=== PATIENT | female | born 1985 | race American Indian/Alaskan Native ===

== ENCOUNTER 2019-05-05 09:39 | Observation (INO) | payer OTHER ==
--- NOTE | 2019-05-05 11:50 | Emergency Department Report ---
ED General Adult HPI - General Chief complaint: Sore Throat Stated complaint: CHEST PAIN/THROAT/HEAD PAIN Time Seen by Provider: 05/05/19 10:24 Source: patient Mode of arrival: Ambulatory Limitations: No Limitations - History of Present Illness Initial comments: Patient is a 33-year-old female presents emergency room with complaints of URI symptoms that began yesterday. She has associated cough, congestion, shortness of breath, chest discomfort with coughing, sore throat, ear pressure. pt states she has had N/V. She denies any rhinorrhea or fever. She states that she only tried to take Motrin [id number]. She denies any past medical history or allergies medications. She states that she has a smoker. Patient states that she is a daily drinker 1 pint of liquor a day. - Related Data Allergies Allergy/AdvReac Type Severity Reaction Status Date / Time No Known Allergies Allergy Unverified 05/05/19 09:43 ED Review of Systems ROS: Stated complaint: CHEST PAIN/THROAT/HEAD PAIN Other details as noted in HPI Comment: All other systems reviewed and negative ED Past Medical Hx - Past Medical History Previous Medical History?: No - Surgical History Past Surgical History?: No - Social History Smoking Status: Current Every Day Smoker Substance Use Type: Alcohol ED Physical Exam - General Limitations: No Limitations General appearance: alert, in no apparent distress - Head Head exam: Present: atraumatic, normocephalic - Eye Eye exam: Present: normal appearance - ENT ENT exam: Present: normal orophraynx, mucous membranes moist, TM's normal bila terally, normal external ear exam, other (clear nasal discharge, pale boggy turbinates) - Respiratory Respiratory exam: Present: normal lung sounds bilaterally. Absent: respiratory distress, wheezes, rales, rhonchi, stridor, chest wall tenderness, accessory mu scle use, decreased breath sounds, prolonged expiratory - Cardiovascular Cardiovascular Exam: Present: normal rhythm, tachycardia, normal heart sounds. Absent: systolic murmur, diastolic murmur, rubs, gallop - Neurological Exam Neurological exam: Present: alert, oriented X3 - Psychiatric Psychiatric exam: Present: normal affect, normal mood - Skin Skin exam: Present: warm, dry, intact ED Course Vital Signs 05/05/19 05/05/19 09:46 15:43 Temperature 97.6 F Pulse Rate 126 H Respiratory 18 18 Rate Blood Pressure 132/92 O2 Sat by Pulse 100 Oximetry - Reevaluation(s) Reevaluation #1: 05/05/19 13:10 Dr. Cast, ER attending evaluated pt, believes most likely DKA - Consultations Consultation #1: 05/05/19 13:[address] Calvin, hospitalist he is with a critical patient, will call back 05/05/19 14:[address] Calvin, hospitalist, does not believe it is DKA, believes it is alcohol induced metabolic acidosis as pt drinks 1 pint of alcohol a day, advised q4hr blood glucose, zofran and reglan q6hr, and protonix BID, will accept and resume care of patient, will admit to the hospital, advised to write bridge orders ED Medical Decision Making - Lab Data Result diagrams: 05/05/19 12:10 05/05/19 12:10 Lab Results 05/05/19 05/05/19 05/05/19 Range/Units 12:10 12:10 12:10 WBC 11.8 H (4.5-11.0) K/mm3 RBC 5.50 H (3.65-5.03) M/mm3 Hgb 12.7 (10.1-14.3) gm/dl Hct 40.5 (30.3-42.9) % MCV 74 L (79-97) fl MCH 23 L (28-32) pg MCHC 31 (30-34) % RDW 15.9 H (13.2-15.2) % Plt Count 288 (140-440) K/mm3 Lymph % (Auto) 6.3 L (13.4-35.0) % Conway % (Auto) 8.6 H (0.0-7.3) % Eos % (Auto) 0.0 (0.0-4.3) % Baso % (Auto) 0.2 (0.0-1.8) % Lymph # 0.7 L (1.2-5.4) K/mm3 Conway # 1.0 H (0.0-0.8) K/mm3 Eos # 0.0 (0.0-0.4) K/mm3 Baso # 0.0 (0.0-0.1) K/mm3 Seg Neutrophils % 84.9 H (40.0-70.0) % Seg Neutrophils # 10.0 H (1.8-7.7) K/mm3 VBG pH (7.320-7.420) Sodium 130 L (137-145) mmol/L Potassium 4.7 (3.6-5.0) mmol/L Chloride 90.4 L (98-107) mmol/L Carbon Dioxide 10 L (22-30) mmol/L Anion Gap 34 mmol/L BUN 9 (7-17) mg/dL Creatinine 0.8 (0.7-1.2) mg/dL Estimated GFR > 60 ml/min BUN/Creatinine Ratio 11 % Glucose 228 H (65-100) mg/dL Hemoglobin A1c (4-6) % Calcium 9.8 (8.4-10.2) mg/dL Phosphorus 1.90 L (2.5-4.5) mg/dL Magnesium 1.90 (1.7-2.3) mg/dL Total Bilirubin 0.90 (0.1-1.2) mg/dL AST 56 H (5-40) units/L ALT 37 (7-56) units/L Alkaline Phosphatase 73 (35-129) units/L Total Creatine Kinase (30-135) units/L Total Protein 9.3 H (6.3-8.2) g/dL Albumin 5.5 H (3.9-5) g/dL Albumin/Globulin Ratio 1.4 % TSH 0.475 (0.270-4.200) mlU/mL Urine Color (Yellow) Urine Turbidity (Clear) Urine pH (5.0-7.0) Ur Specific Catherine (1.003-1.030) Urine Protein (Negative) mg/dL Urine Glucose (UA) (Negative) mg/dL Urine Ketones (Negative) mg/dL Urine Blood (Negative) Urine Nitrite (Negative) Urine Bilirubin (Negative) Urine Urobilinogen (<2.0) mg/dL Ur Leukocyte Esterase (Negative) Urine WBC (Auto) (0.0-6.0) /HPF Urine RBC (Auto) (0.0-6.0) /HPF U Epithel Cells (Auto) (0-13.0) /HPF Urine Mucus /HPF 05/05/19 05/05/19 05/05/19 Range/Units 12:10 12:52 12:52 WBC (4.5-11.0) K/mm3 RBC (3.65-5.03) M/mm3 Hgb (10.1-14.3) gm/dl Hct (30.3-42.9) % MCV (79-97) fl MCH (28-32) pg MCHC (30-34) % RDW (13.2-15.2) % Plt Count (140-440) K/mm3 Lymph % (Auto) (13.4-35.0) % Conway % (Auto) (0.0-7.3) % Eos % (Auto) (0.0-4.3) % Baso % (Auto) (0.0-1.8) % Lymph # (1.2-5.4) K/mm3 Conway # (0.0-0.8) K/mm3 Eos # (0.0-0.4) K/mm3 Baso # (0.0-0.1) K/mm3 Seg Neutrophils % (40.0-70.0) % Seg Neutrophils # (1.8-7.7) K/mm3 VBG pH (7.320-7.420) Sodium (137-145) mmol/L Potassium (3.6-5.0) mmol/L Chloride (98-107) mmol/L Carbon Dioxide (22-30) mmol/L Anion Gap mmol/L BUN (7-17) mg/dL Creatinine (0.7-1.2) mg/dL Estimated GFR ml/min BUN/Creatinine Ratio % Glucose (65-100) mg/dL Hemoglobin A1c 4.7 (4-6) % Calcium (8.4-10.2) mg/dL Phosphorus (2.5-4.5) mg/dL Magnesium (1.7-2.3) mg/dL Total Bilirubin (0.1-1.2) mg/dL AST (5-40) units/L ALT (7-56) units/L Alkaline Phosphatase (35-129) units/L Total Creatine Kinase 76 (30-135) units/L Total Protein (6.3-8.2) g/dL Albumin (3.9-5) g/dL Albumin/Globulin Ratio % TSH (0.270-4.200) mlU/mL Urine Color Yellow (Yellow) Urine Turbidity Clear (Clear) Urine pH 6.0 (5.0-7.0) Ur Specific Catherine 1.014 (1.003-1.030) Urine Protein >500 (Negative) mg/dL Urine Glucose (UA) 50 (Negative) mg/dL Urine Ketones 80 (Negative) mg/dL Urine Blood Mod (Negative) Urine Nitrite Neg (Negative) Urine Bilirubin Neg (Negative) Urine Urobilinogen < 2.0 (<2.0) mg/dL Ur Leukocyte Esterase Neg (Negative) Urine WBC (Auto) 1.0 (0.0-6.0) /HPF Urine RBC (Auto) 2.0 (0.0-6.0) /HPF U Epithel Cells (Auto) 2.0 (0-13.0) /HPF Urine Mucus Few /HPF 05/05/19 Range/Units 13:03 WBC (4.5-11.0) K/mm3 RBC (3.65-5.03) M/mm3 Hgb (10.1-14.3) gm/dl Hct (30.3-42.9) % MCV (79-97) fl MCH (28-32) pg MCHC (30-34) % RDW (13.2-15.2) % Plt Count (140-440) K/mm3 Lymph % (Auto) (13.4-35.0) % Conway % (Auto) (0.0-7.3) % Eos % (Auto) (0.0-4.3) % Baso % (Auto) (0.0-1.8) % Lymph # (1.2-5.4) K/mm3 [place] # (0.0-0.8) K/mm3 Eos # (0.0-0.4) K/mm3 Baso # (0.0-0.1) K/mm3 Seg Neutrophils % (40.0-70.0) % Seg Neutrophils # (1.8-7.7) K/mm3 VBG pH 7.243 L (7.320-7.420) Sodium (137-145) mmol/L Potassium (3.6-5.0) mmol/L Chloride (98-107) mmol/L Carbon Dioxide (22-30) mmol/L Anion Gap mmol/L BUN (7-17) mg/dL Creatinine (0.7-1.2) mg/dL Estimated GFR ml/min BUN/Creatinine Ratio % Glucose (65-100) mg/dL Hemoglobin A1c (4-6) % Calcium (8.4-10.2) mg/dL Phosphorus (2.5-4.5) mg/dL Magnesium (1.7-2.3) mg/dL Total Bilirubin (0.1-1.2) mg/dL AST (5-40) units/L ALT (7-56) units/L Alkaline Phosphatase (35-129) units/L Total Creatine Kinase (30-135) units/L Total Protein (6.3-8.2) g/dL Albumin (3.9-5) g/dL Albumin/Globulin Ratio % TSH (0.270-4.200) mlU/mL Urine Color (Yellow) Urine Turbidity (Clear) Urine pH (5.0-7.0) Ur Specific Catherine (1.003-1.030) Urine Protein (Negative) mg/dL Urine Glucose (UA) (Negative) mg/dL Urine Ketones (Negative) mg/dL Urine Blood (Negative) Urine Nitrite (Negative) Urine Bilirubin (Negative) Urine Urobilinogen (<2.0) mg/dL Ur Leukocyte Esterase (Negative) Urine WBC (Auto) (0.0-6.0) /HPF Urine RBC (Auto) (0.0-6.0) /HPF U Epithel Cells (Auto) (0-13.0) /HPF Urine Mucus /HPF - Medical Decision Making Patient is a 33-year-old female presents emergency room with complaints of URI symptoms that began yesterday. She has associated cough, congestion, shortness of breath, chest discomfort with coughing, sore throat, ear pressure. pt states she has had N/V. She denies any rhinorrhea or fever. She states that she only tried to take Motrin [id number]. She denies any past medical history or allergies medications. She states that she has a smoker. Patient states that she is a daily drinker 1 pint of liquor a day. initial vitals with elevated HR which improved upon repeat. Labs significant for a venous pH of 7.2, carbon dioxide 10, glucose 228, AST 56, phosphorus 1.9. spoke with Dr. Cast, ER attending evaluated pt, believes most likely DKA, ordered a hemoglobin A1C. hemoglobin A1c was normal. Spoke with Dr. Calvin hospitalist believes anion gap metabolic acidosis is likely secondary to alcohol use. spoke with Dr. Calvin, hospitalist, advised q4hr blood glucose, zofran and reglan q6hr, and protonix BID, will accept and resume care of patient, will admit to the hospital, advised to write bridge orders - Differential Diagnosis pancreatitis, thyroid disorder, electrolyte disturbance, liver/renal failur Critical care attestation.: If time is entered above; I have spent that time in minutes in the direct care of this critically ill patient, excluding procedure time. ED Disposition Clinical Impression: High anion gap metabolic acidosis URI (upper respiratory infection) Qualifiers: URI type: unspecified URI Qualified Code(s): J06.9 - Acute upper respiratory infection, unspecified Disposition: OP ADMIT IP TO THIS HOSP Is pt being admited?: Yes Does the pt Need Aspirin: No Condition: Fair
[2019-05-05 12:43] LABS: Basophils % (Auto) 0.2 % (0.0-1.8); Hematocrit 40.5 % (30.3-42.9); Hemoglobin 12.7 gm/dl (10.1-14.3); Lymphocytes # (Auto) 0.7 K/mm3 (1.2-5.4); Lymphocytes % (Auto) 6.3 % (13.4-35.0); Mean Corpuscular HGB Conc 31 % (30-34); Mean Corpuscular Volume 74 fl (79-97); Monocytes % (Auto) 8.6 % (0.0-7.3); Platelet Count 288 K/mm3 (140-440); Red Cell Distribution Width 15.9 % (13.2-15.2)
[2019-05-05 12:47] LABS: Alanine Aminotransferase 37 units/L (7-56); Albumin 5.5 g/dL (3.9-5); BUN/Creatinine Ratio 11; Blood Urea Nitrogen 9 mg/dL (7-17); Calcium 9.8 mg/dL (8.4-10.2); Hemolysis Index 7
[2019-05-05] MEDS ORDERED: SODIUM CHLORIDE 0.9% 1000 ML 1,000 ML IV ONE ×2 (12:49→13:59)
--- NOTE | 2019-05-05 13:14 | XRay Report ---
ABDOMEN 3 VIEW(S) INDICATION: Upper respiratory infection. Abdominal pain. COMPARISON: None available. FINDINGS: Bowel gas pattern: No significant abnormality. Free air: None seen. Stones: None seen. Chest: No acute findings. Additional Findings: No additional significant findings. IMPRESSION: 1. No acute findings. Signer Name: Dipesh Hubbard MD Signed: 05/05/2019 1:10 PM Workstation Name: [id number]
[2019-05-05 13:20] LABS: Bilirubin,Urine NEG (Negative); Blood,Urine MOD (Negative); Color,Urine Yellow (Yellow); Mucus,Urine FEW /HPF; Urobilinogen,Urine < 2.0 mg/dL (<2.0)
[2019-05-05 13:29] LABS: Protein,Urine >500 mg/dL (Negative)
[2019-05-05] MEDS ORDERED: DEXTROSE 50% IN WATER (25GM) 50 ML SYRINGE IV PRN ×2 (13:30→16:50)
[2019-05-05] MEDS ORDERED: PHOS-NAK POWDER PACKET PO ONE (13:49)
[2019-05-05] MEDS ORDERED: PANTOPRAZOLE 40 MG INJ IV ONE ×3 (13:58→14:47)
[2019-05-05] MEDS ORDERED: METOCLOPRAMIDE 10 MG/2 ML INJ IV PRN (13:58)
[2019-05-05] MEDS ORDERED: ONDANSETRON 4 MG/2 ML INJ IV PRN ×2 (14:00→15:43)
[2019-05-05] MEDS ORDERED: INSULIN REGULAR, HUMAN 100 UNITS in SODIUM CHLORIDE 0.9% 99 ML IV SCH (14:00)
[2019-05-05] MEDS ORDERED: SODIUM CHLORIDE 0.9% 1000 ML 1,000 ML ONE (14:47)
--- NOTE | 2019-05-05 15:07 | History and Physical Report ---
History of Present Illness Date of examination: 05/05/19 Date of admission: 05/05/19 14:01 Chief complaint: N/V/abdominal pain x 2 days History of present illness: Patient is a 33-year-old female with a past medical history of anemia who presents to ER with complaints of abdominal pain, nausea, vomiting and throat burning 2 days. Patient states she has been binge drinking, more than her normal amount since her left her on 05/03/2019. Patient reports drinking about a pint of alcohol daily 7 years and smokes daily 2 years. Patient repo rts vomiting twice today and came to the ER after realizing that she is not able to keep anything down. She has tried [id number] pain meds without relief for for her right lower quadrant abdominal pain that radiates to flank. Patient states she was only able to keep down Gatorade that was given to her in the ER. Past History Past Medical History: anemia Past Surgical History: No surgical history Social history: , smoking (x 2 years), alcohol abuse (x 7 years) Family history: diabetes Medications and Allergies Allergies Allergy/AdvReac Type Severity Reaction Status Date / Time No Known Allergies Allergy Unverified 05/05/19 09:43 Active Meds: Active Medications Sodium Chloride (Nacl 0.9% 1000 Ml) 1,000 mls @ 125 mls/hr IV ONCE ONE Stop: 05/05/19 21:58 Metoclopramide HCl (Reglan) 10 mg IV Q6H PRN PRN Reason: Nausea And Vomiting Ondansetron HCl (Zofran) 4 mg IV Q6HR PRN PRN Reason: Nausea And Vomiting Review of Systems Constitutional: chills, poor appetite, no fever, no fatigue, no weakness, no chronic pain Ears, nose, mouth and throat: sore throat, no nasal congestion, no nasal discharge, no sinus pressure, no sinus pain, no post-nasal drip Breasts: no swelling, no pain Cardiovascular: no lightheadedness, no shortness of breath, no dyspnea on exertion, no high blood pressure, no leg edema Respiratory: no shortness of breath, no dyspnea on exertion, no congestion, no wheezing, no pain Gastrointestinal: abdominal pain, nausea, heartburn, no diarrhea, no constipation Genitourinary Female: no pelvic pain, no urgency Menstruation: cycle variable, no postmenopausal Musculoskeletal: no neck pain, no arm numbness/tingling, no leg numbness/tingling, no morning stiffness, no muscle weakness, no frequent falls Integumentary: no rash, no sores, no wounds Neurological: no paralysis, no weakness, no numbness, no seizures, no loss of vision Psychiatric: change in sleep habits, change in appetite, hopelessness Endocrine: no cold intolerance, no heat intolerance, no weight change, no increase in ring/shoe/hat size Hematologic/Lymphatic: no easy bruising, no easy bleeding Allergic/Immunologic: no wheezing, no persistent infections, no anaphylaxis Exam - Constitutional Vitals: Temp Pulse Resp BP Pulse Ox 97.6 F 126 H 18 132/92 100 05/05/19 09:46 05/05/19 09:46 05/05/19 09:46 05/05/19 09:46 05/05/19 09:46 General appearance: Present: no acute distress - EENT Eyes: Present: PERRL, EOM intact ENT: hearing intact, clear oral mucosa, dentition normal - Neck Neck: Present: supple, normal ROM - Respiratory Respiratory effort: normal Respiratory: bilateral: CTA - Cardiovascular Rhythm: regular Heart Sounds: Present: S1 & S2. Absent: rub, click - Extremities Extremities: pulses symmetrical, No edema Peripheral Pulses: within normal limits - Abdominal General gastrointestinal: Present: soft, tender, non-distended, normal bowel sounds Localized gastrointestinal: tender: diffuse Female genitourinary: Present: normal - Integumentary Integumentary: Present: clear, warm, dry - Musculoskeletal Musculoskeletal: strength equal bilaterally - Psychiatric Psychiatric: intact judgment & insight, cooperative - Neurologic Neurologic: CNII-XII intact, moves all extremities Results - Labs CBC & Chem 7: 05/05/19 12:10 05/05/19 12:10 Labs: Laboratory Last Values WBC 11.8 K/mm3 (4.5-11.0) H 05/05/19 12:10 RBC 5.50 M/mm3 (3.65-5.03) H 05/05/19 12:10 Hgb 12.7 gm/dl (10.1-14.3) 05/05/19 12:10 Hct 40.5 % (30.3-42.9) 05/05/19 12:10 MCV 74 fl (79-97) L 05/05/19 12:10 MCH 23 pg (28-32) L 05/05/19 12:10 MCHC 31 % (30-34) 05/05/19 12:10 RDW 15.9 % (13.2-15.2) H 05/05/19 12:10 Plt Count 288 K/mm3 (140-440) 05/05/19 12:10 Lymph % (Auto) 6.3 % (13.4-35.0) L 05/05/19 12:10 [place] % (Auto) 8.6 % (0.0-7.3) H 05/05/19 12:10 Eos % (Auto) 0.0 % (0.0-4.3) 05/05/19 12:10 Baso % (Auto) 0.2 % (0.0-1.8) 05/05/19 12:10 Lymph # 0.7 K/mm3 (1.2-5.4) L 05/05/19 12:10 Waller # 1.0 K/mm3 (0.0-0.8) H 05/05/19 12:10 Eos # 0.0 K/mm3 (0.0-0.4) 05/05/19 12:10 Baso # 0.0 K/mm3 (0.0-0.1) 05/05/19 12:10 Seg Neutrophils % 84.9 % (40.0-70.0) H 05/05/19 12:10 Seg Neutrophils # 10.0 K/mm3 (1.8-7.7) H 05/05/19 12:10 VBG pH 7.243 (7.320-7.420) L 05/05/19 13:03 Sodium 130 mmol/L (137-145) L 05/05/19 12:10 Potassium 4.7 mmol/L (3.6-5.0) 05/05/19 12:10 Chloride 90.4 mmol/L (98-107) L 05/05/19 12:10 Carbon Dioxide 10 mmol/L (22-30) L 05/05/19 12:10 Anion Gap 34 mmol/L 05/05/19 12:10 BUN 9 mg/dL (7-17) 05/05/19 12:10 Creatinine 0.8 mg/dL (0.7-1.2) 05/05/19 12:10 Estimated GFR > 60 ml/min 05/05/19 12:10 BUN/Creatinine Ratio 11 % 05/05/19 12:10 Glucose 228 mg/dL (65-100) H 05/05/19 12:10 POC Glucose 94 (70-105) 05/05/19 14:43 Hemoglobin A1c 4.7 % (4-6) 05/05/19 12:10 Calcium 9.8 mg/dL (8.4-10.2) 05/05/19 12:10 Phosphorus 1.90 mg/dL (2.5-4.5) L 05/05/19 12:10 Magnesium 1.90 mg/dL (1.7-2.3) 05/05/19 12:10 Total Bilirubin 0.90 mg/dL (0.1-1.2) 05/05/19 12:10 AST 56 units/L (5-40) H 05/05/19 12:10 ALT 37 units/L (7-56) 05/05/19 12:10 Alkaline Phosphatase 73 units/L (35-129) 05/05/19 12:10 Total Creatine Kinase 76 units/L (30-135) 05/05/19 12:52 Total Protein 9.3 g/dL (6.3-8.2) H 05/05/19 12:10 Albumin 5.5 g/dL (3.9-5) H 05/05/19 12:10 Albumin/Globulin Ratio 1.4 % 05/05/19 12:10 TSH 0.475 mlU/mL (0.270-4.200) 05/05/19 12:10 Urine Color Yellow (Yellow) 05/05/19 12:52 Urine Turbidity Clear (Clear) 05/05/19 12:52 Urine pH 6.0 (5.0-7.0) 05/05/19 12:52 Ur Specific [place] 1.014 (1.003-1.030) 05/05/19 12:52 Urine Protein >500 mg/dL (Negative) 05/05/19 12:52 Urine Glucose (UA) 50 mg/dL (Negative) 05/05/19 12:52 Urine Ketones 80 mg/dL (Negative) 05/05/19 12:52 Urine Blood Mod (Negative) 05/05/19 12:52 Urine Nitrite Neg (Negative) 05/05/19 12:52 Urine Bilirubin Neg (Negative) 05/05/19 12:52 Urine Urobilinogen < 2.0 mg/dL (<2.0) 05/05/19 12:52 Ur Leukocyte Esterase Neg (Negative) 05/05/19 12:52 Urine WBC (Auto) 1.0 /HPF (0.0-6.0) 05/05/19 12:52 Urine RBC (Auto) 2.0 /HPF (0.0-6.0) 05/05/19 12:52 U Epithel Cells (Auto) 2.0 /HPF (0-13.0) 05/05/19 12:52 Urine Mucus Few /HPF 05/05/19 12:52 - Imaging and Cardiology Chest x-ray: report reviewed (No acute findings.) Assessment and Plan Assessment and plan: Alcoholic Ketoacidosis -Accu-Chek before ac/hs -IVF -mental health consult/ rehab -[facility] protocol hyperglycemia -Possibly related to EtOH and malnourisment -A1c 4.7 -achs/ sliding scale Anemia -Monitor labs -check iron level Dehydration -IV fluids Hyponatremia -r/t vomiting x 2 days -antiemetic ordered -Monitor after IVF replacement Alcoholic Gastritis -protonix 40 q 12 -reglan DVT Prophyslaxis -SCDs while patient in bed -heparin Advance Directives: Yes VTE prophylaxis?: Mechanical
[2019-05-05] MEDS ORDERED: HYDROcodone/ACETAMINOPHEN 5-325 MG TAB PO PRN (15:43)
[2019-05-05] MEDS ORDERED: ACETAMINOPHEN 325 MG TAB PO PRN (15:43)
[2019-05-05] MEDS ORDERED: IBUPROFEN 600 MG TAB PO PRN (15:43)
[2019-05-05] MEDS ORDERED: LORazepam 2 MG TAB PO PRN (17:23)
[2019-05-05] MEDS ORDERED: ENOXAPARIN 40 MG/0.4 ML INJ SUB-Q SCH (22:00)
[2019-05-05] MEDS: SODIUM CHLORIDE 0.9% 1000 ML 1,000 ML IV SCH (23:40)
[2019-05-05] MEDS: INSULIN LISPRO 100 UNIT/ML SUB-Q SCH (23:44)
[2019-05-06] MEDS: SODIUM CHLORIDE 0.9% 1000 ML 1,000 ML IV SCH (08:33)
[2019-05-06] MEDS: INSULIN LISPRO 100 UNIT/ML SUB-Q SCH ×2 (09:00→12:53)
[2019-05-06 09:31] LABS: Basophils % (Auto) 0.8 % (0.0-1.8); Eosinophils # (Auto) 0.1 K/mm3 (0.0-0.4); Eosinophils % (Auto) 1.5 % (0.0-4.3); Hematocrit 30.6 % (30.3-42.9); Hemoglobin 9.9 gm/dl (10.1-14.3); Lymphocytes # (Auto) 1.6 K/mm3 (1.2-5.4); Lymphocytes % (Auto) 27.1 % (13.4-35.0); Mean Corpuscular HGB Conc 33 % (30-34); Mean Corpuscular Volume 72 fl (79-97); Monocytes # (Auto) 0.6 K/mm3 (0.0-0.8); Monocytes % (Auto) 9.8 % (0.0-7.3); Platelet Count 175 K/mm3 (140-440); Red Blood Count 4.25 M/mm3 (3.65-5.03); Red Cell Distribution Width 15.3 % (13.2-15.2)
[2019-05-06 09:52] LABS: BUN/Creatinine Ratio 13; Blood Urea Nitrogen 5 mg/dL (7-17); Calcium 8.9 mg/dL (8.4-10.2); Hemolysis Index 10; Iron 249 ug/dL (37-170)
[2019-05-06 10:47] LABS: Total Iron Binding Capacity 256 mcg/dL (250-450)
--- NOTE | 2019-05-06 11:36 | Discharge Summary ---
Providers - Providers Date of Admission: 05/05/19 14:01 Date of discharge: 05/06/19 Attending physician: KALEB CRESPO 05/05/19 15:43 Consult to Dietitian/Nutrition [CONS] Routine Physician Instructions: Reason For Exam: Reason for Consult: lack of appetite 05/05/19 16:59 Consult to Mental Health [CONS] Routine Reason For Exam: alcohol dependency Place consult to:: ERNESTO Notified:: M.H.. Phone number called:: [phone] Was contact made?: Yes If yes, spoke with:: ERNESTO Time called:: 17:15 Comment:: NURSE NOTIFIED 05/05/19 17:14 Consult to Mental Health [CONS] Stat Reason For Exam: alcohol dependency Place consult to:: mental health Notified:: Ernesto (Iron Worker Apprentice) Primary care physician: MULTIPLE SLIDE OPERATOR Hospitalization Reason for admission: Alcoholic Ketoacidosis Condition: Stable Procedures: None Hospital course: Final discharge diagnosis: Alcoholic Ketoacidosis Hyperglycemia, probably 2/2 dehydration Hypokalemia Hypophosphatemia Leukocytosis, likely reactive Intractable n/v Hyponatremia, likely due to hypovolemia Alcoholic Gastritis Hospital course: Pt was admitted and placed on IVF, PPI and anti-emetics. Subsequently, she improved clinically and was then deemed stable for d/c. At d/c, she was counseled on alcohol use cessation and was given information on how to seek help for her alcohol abuse. She was also d/kathleen on k supplements for the hypokalemia. of note, her hba1c level came back at 4.7, not indicative for DM. Disposition: - TO HOME OR SELFCARE Time spent for discharge: 30 mins Core Measure Documentation - Palliative Care Palliative Care/ Comfort Measures: Not Applicable - Core Measures Any of the following diagnoses?: none Exam - Constitutional Vitals: Temp Pulse Resp BP Pulse Ox 98.4 F 110 H 18 127/95 99 05/06/19 05:50 05/06/19 05:50 05/06/19 05:50 05/06/19 05:50 05/06/19 05:50 General appearance: Present: no acute distress - EENT Eyes: Present: PERRL, EOM intact ENT: hearing intact, clear oral mucosa - Neck Neck: Present: supple, normal ROM - Respiratory Respiratory effort: normal Respiratory: bilateral: CTA - Cardiovascular Rhythm: regular Heart Sounds: Present: S1 & S2. Absent: rub, click - Extremities Extremities: No edema - Abdominal General gastrointestinal: Present: soft, non-tender, non-distended, normal bowel sounds - Integumentary Integumentary: Present: clear, warm, dry - Musculoskeletal Musculoskeletal: gait normal, strength equal bilaterally - Psychiatric Psychiatric: appropriate mood/affect, intact judgment & insight - Neurologic Neurologic: CNII-XII intact, moves all extremities Plan Follow up with: PRIMARY CARE,MD [Primary Care Provider] - 3-5 Days Prescriptions: Potassium Chloride [K-Dur] 40 meq PO QDAY 3 Days #6 tablet Sodium Bicarbonate 650 mg PO TID 3 Days #9 tablet
[2019-05-06] MEDS ORDERED: FLU VACC QUAD 2019-20 (3 YR UP)/PF 60 MCG/0.5 ML SYRINGE IM ONE (12:00)
[2019-05-06 13:57] VITALS: BP 133/91
== END 2019-05-06 14:00 | disposition home or self-care (01) ==
LOC: ED 09:39 → 3A 14:01
PROVIDERS: ADMIT Internal Medicine; ATTEND Internal Medicine
DX: E87.2 Acidosis (principal); E86.0 Dehydration; R73.9 Hyperglycemia, unspecified; E87.6 Hypokalemia; E83.39 Other disorders of phosphorus metabolism; D72.829 Elevated white blood cell count, unspecified; E87.1 Hypo-osmolality and hyponatremia; K29.20 Alcoholic gastritis without bleeding; J06.9 Acute upper respiratory infection, unspecified; D64.9 Anemia, unspecified; F10.10 Alcohol abuse, uncomplicated; F17.200 Nicotine dependence, unspecified, uncomplicated
CPT/HCPCS: 36415; 74022; 80048; 80053; 81001; 82550; 82805; 82962; 83036; 83550; 83735; 84100; 84443; 85025; 90686; 96361; 96372; 96374; 99284; C9113; G0378; J1650; J7030; J1815

== ENCOUNTER 2022-01-26 11:55 | Emergency (ER) | payer MEDICAID, OTHER ==
[2022-01-26 12:44] VITALS: BP 129/94
--- NOTE | 2022-01-26 12:56 | Emergency Department Report ---
Blank Doc - Documentation Documentation: 36-year-old female that presents with left-sided pain after remove fell at home. Stated had LOC as well. 1- This is a initial triage assessment/medical screening only. Full assessment and work-up will be completed once the patient is in proper hospital gown, ED bed and in a private room setting. This initial assessment/diagnostic orders/clinical plan/ treatment(s) is/are subject to change based on pt's health status, clinical progression and re-assessment by fellow clinical providers in the ED. Further treatment and workup at subsequent clinical providers discretion. Patient/guardians urged not to elope from ED as their condition may be serious if not clinically assessed and managed. 2-imaging studies 3-cervical collar The patient was evaluated in the emergency department for symptoms described in the history of present illness. He/she was evaluated in the context of the global COVID-19 pandemic, which necessitated consideration that the patient might be at risk for infection with the virus that causes COVID-19. Institutional protocols and algorithms that pertain to the evaluation of patients at risk for COVID-19 are in a state of rapid change based on information released by regulatory bodies including the CDC and federal and state organizations. These policies and algorithms were followed during the patient's care in the emergency department. Please note that these policies, procedures and recommendations changed on a rapid basis.
--- NOTE | 2022-01-26 13:14 | Cat Scan Report ---
CT HEAD WITHOUT CONTRAST INDICATION / CLINICAL INFORMATION: roof fell to left side. Head injury. Patient reports she was injured by a falling ceiling fan. TECHNIQUE: All CT scans at this location are performed using CT dose reduction for ALARA by means of automated e xposure control. COMPARISON: None available. FINDINGS: HEMORRHAGE: No evidence of intracranial hemorrhage or extra-axial fluid collection. EXTRA-AXIAL SPACES: Cortical sulci, sylvian fissures and basilar cisterns have an unremarkable appear ance. VENTRICULAR SYSTEM: The third and lateral ventricles are of normal size and configuration. CEREBRAL PARENCHYMA: No areas of abnormal brain parenchymal attenuation are identified. There is no i ndication of recent infarction. MIDLINE SHIFT OR HERNIATION: There is no mass effect. CEREBELLUM / BRAINSTEM: Atrophy of the cerebellar vermis is noted, greater than expected for age 36 y ears. Brainstem and cerebellum have an otherwise unremarkable appearance. MIDLINE STRUCTURES:No abnormalities of the pituitary gland or pineal region are identified. INTRACRANIAL VESSELS:No abnormalities are identified on this noncontrast head CT. ORBITS: visualized portions of the orbits have an unremarkable appearance. SOFT TISSUES of HEAD: No significant abnormality. CALVARIUM: Evaluation of bone windows reveals no abnormalities. PARANASAL SINUSES / MASTOID AIR CELLS: Visualized portions of the paranasal sinuses are free from inf lammatory mucosal disease. Mastoid air cells are normally pneumatized. IMPRESSION: 1. No acute intracranial abnormality. 2. Atrophy of the cerebellar vermis greater than expected for age 36 years. Signer Name: Tonny Solorzano MD Signed: 01/26/2022 1:10 PM Workstation Name: [id number]
--- NOTE | 2022-01-26 13:18 | Cat Scan Report ---
CT CERVICAL SPINE WITHOUT CONTRAST INDICATION / CLINICAL INFORMATION: roof fell to left side. Patient reports she was injured on the ceiling fan fell on her head. Head and neck injury. TECHNIQUE: Axial CT images were obtained through the cervical spine. Sagittal and coronal reformatted images wer e produced. All CT scans at this location are performed using CT dose reduction for ALARA by means of automated exposure control. COMPARISON: None available. FINDINGS: POSTOPERATIVE CHANGE:none ALIGNMENT: Normal alignment is maintained throughout the cervical region. VERTEBRAE: No indication of fracture or bone destruction. DISC SPACES: Disc height is normally maintained throughout. DEGENERATIVE CHANGES: Mild anterior osteophyte formation is observed at the C3-4 level. No additional degenerative changes are identified. CRANIOCERVICAL JUNCTION:No significant abnormality. SPINAL CANAL: Central spinal canal is adequately maintained throughout. PARASPINAL SOFT TISSUES: No significant abnormality. LUNG APICES: No significant abnormality of visualized lungs. IMPRESSION: 1. No indication of fracture, traumatic subluxation or significant degenerative change. Signer Name: Tonny Solorzano MD Signed: 01/26/2022 1:13 PM Workstation Name: [id number]
--- NOTE | 2022-01-26 14:09 | XRay Report ---
Chest with left RIBS 3 views HISTORY: Left rib pain status post fall. FINDINGS: Mild dextroconvex scoliosis is present at the thoracic spine. No bony injury identified. Heart size is normal. The lungs are clear. No pneumothorax, pleural fluid or infiltrate. Signer Name: Yonatan Silverman MD Signed: 01/26/2022 2:05 PM Workstation Name: [id number]
--- NOTE | 2022-01-26 18:30 | Emergency Department Report ---
ED General Adult HPI - General Chief complaint: Pain General Stated complaint: HEADACHE/CHEST PAIN Time Seen by Provider: 01/26/22 12:38 Source: patient Mode of arrival: Ambulatory Limitations: No Limitations - History of Present Illness Initial comments: 36-year-old female reports to the ER with complaints of left shoulder pain left neck pain headache and left leg pain after the ceiling at her home fell onto her yesterday afternoon. Decision is made out of drywall material. Patient states that she had a LOC but less than 5 minutes. Patient reports her pain about 7 out of 10. Patient reports no other acute signs and symptoms at this moment. Severity scale (0 -10): 10 - Related Data Previous Rx's Medication Instructions Recorded Last Taken Type Potassium Chloride [K-Dur] 40 meq PO QDAY 3 Days #6 tablet 05/06/19 Unknown Rx Sodium Bicarbonate 650 mg PO TID 3 Days #9 tablet 05/06/19 Unknown Rx Acetaminophen/Codeine [Tylenol 1 tab PO Q6H PRN 2 Days #8 tab 01/26/22 Unknown Rx /Codeine # 3 tab] Ibuprofen [Motrin] 800 mg PO Q8HR PRN 6 Days #18 01/26/22 Unknown Rx tablet methOCARBAMOL [Robaxin TAB] 500 mg PO Q6H PRN 7 Days #14 tab 01/26/22 Unknown Rx Allergies Allergy/AdvReac Type Severity Reaction Status Date / Time No Known Allergies Allergy Unverified 05/05/19 09:43 ED Review of Systems ROS: Stated complaint: HEADACHE/CHEST PAIN Other details as noted in HPI Comment: All other systems reviewed and negative Musculoskeletal: arthralgia, myalgia, other (Neck pain, left shoulder pain, left leg pain) Neurological: headache, other (Positive LOC) ED Past Medical Hx - Past Medical History Previous Medical History?: No Hx Congestive Heart Failure: No Hx Diabetes: No Hx Asthma: No Hx COPD: No Hx HIV: No - Surgical History Past Surgical History?: No - Social History Smoking Status: Current Every Day Smoker Substance Use Type: Alcohol - Medications Home Medications: Home Medications Medication Instructions Recorded Confirmed Last Taken Type Potassium Chloride [K-Dur] 40 meq PO QDAY 3 Days #6 tablet 05/06/19 Unknown Rx Sodium Bicarbonate 650 mg PO TID 3 Days #9 tablet 05/06/19 Unknown Rx Acetaminophen/Codeine [Tylenol 1 tab PO Q6H PRN 2 Days #8 tab 01/26/22 Unknown Rx /Codeine # 3 tab] Ibuprofen [Motrin] 800 mg PO Q8HR PRN 6 Days #18 01/26/22 Unknown Rx tablet methOCARBAMOL [Robaxin TAB] 500 mg PO Q6H PRN 7 Days #14 tab 01/26/22 Unknown Rx ED Physical Exam - General Limitations: No Limitations General appearance: alert, in no apparent distress - Head Head exam: Present: atraumatic, normocephalic - Eye Eye exam: Present: normal appearance - ENT ENT exam: Present: mucous membranes moist - Neck Neck exam: Present: normal inspection, tenderness (Left side. No cervical tenderness noted.), full ROM - Respiratory Respiratory exam: Present: normal lung sounds bilaterally. Absent: respiratory distress - Cardiovascular Cardiovascular Exam: Present: regular rate, normal rhythm. Absent: systolic murmur, diastolic murmur, rubs, gallop - GI/Abdominal GI/Abdominal exam: Present: soft, normal bowel sounds - Extremities Exam Extremities exam: Present: normal inspection, other (Left shoulder pain tendern ess noted with no swelling, no deformity. Left leg pain noted with tenderness no swelling no deformity no open wounds present.) - Back Exam Back exam: Present: normal inspection - Neurological Exam Neurological exam: Present: alert, oriented X3, normal gait - Expanded Neurological Exam Expanded Speech: Present: fluid speech Cranial nerves: EOM's Intact: Normal, Facial Sensation: Normal Motor strength exam: RUE: 5, LUE: 5, RLE: 5, LLE: 5 - Psychiatric Psychiatric exam: Present: normal affect, normal mood - Skin Skin exam: Present: warm, dry, intact, normal color. Absent: rash ED Course Vital Signs 01/26/22 12:41 Temperature 97.7 F Pulse Rate 94 H Respiratory 18 Rate Blood Pressure 129/94 [Left] O2 Sat by Pulse 99 Oximetry ED Medical Decision Making - Radiology Data [facility] [address] [place] [address] Cat Scan Report Signed Patient: ROBERT DOUGLASS MR#: [id number] [birth year] : 1985 Acct:[id number] Age/Sex: 36 / F ADM Date: 01/26/22 Loc: ED Attending Dr: Ordering Physician: KACY DIOP NP Date of Service: 01/26/22 Procedure(s): CT cervical spine wo con Accession Number(s): [id number] cc: KACY DIOP NP CT CERVICAL SPINE WITHOUT CONTRAST INDICATION / CLINICAL INFORMATION: roof fell to left side. Patient reports she was injured on the ceiling fan fell on her head. Head and neck injury. TECHNIQUE: Axial CT images were obtained through the cervical spine. Sagittal and coronal reformatted images were produced. All CT scans at this location are performed using CT dose reduction for ALARA by means of automated exposure control. COMPARISON: None available. FINDINGS: POSTOPERATIVE CHANGE:none ALIGNMENT: Normal alignment is maintained throughout the cervical region. VERTEBRAE: No indication of fracture or bone destruction. DISC SPACES: Disc height is normally maintained throughout. DEGENERATIVE CHANGES: Mild anterior osteophyte formation is observed at the C3- 4 level. No additional degenerative changes are identified. CRANIOCERVICAL JUNCTION:No significant abnormality. SPINAL CANAL: Central spinal canal is adequately maintained throughout. PARASPINAL SOFT TISSUES: No significant abnormality. LUNG APICES: No significant abnormality of visualized lungs. IMPRESSION: 1. No indication of fracture, traumatic subluxation or significant degenerative change. Signer Name: Tonny Solorzano MD Signed: 01/26/2022 1:13 PM Workstation Name: [id number] Transcribed By: Dictated By: Tonny Solorzano MD Electronically Authenticated By: Tonny Solorzano MD Signed Date/Time: 01/26/22 1313 DD/ 1310 TD/TT: [facility] [address] [place] [address] Cat Scan Report Signed Patient: ROBERT DOUGLASS MR#: [id number] 50 : 1985 Acct:[id number] Age/Sex: 36 / F ADM Date: 01/26/22 Loc: ED Attending Dr: Ordering Physician: KACY DIOP NP Date of Service: 01/26/22 Procedure(s): CT head/brain wo con Accession Number(s): [id number] cc: KACY DIOP NP CT HEAD WITHOUT CONTRAST INDICATION / CLINICAL INFORMATION: roof fell to left side. Head injury. Patient reports she was injured by a falling ceiling fan. TECHNIQUE: All CT scans at this location are performed using CT dose reduction for ALARA by means of automated exposure control. COMPARISON: None available. FINDINGS: HEMORRHAGE: No evidence of intracranial hemorrhage or extra-axial fluid collection. EXTRA-AXIAL SPACES: Cortical sulci, sylvian fissures and basilar cisterns have an unremarkable appearance. VENTRICULAR SYSTEM: The third and lateral ventricles are of normal size and configuration. CEREBRAL PARENCHYMA: No areas of abnormal brain parenchymal attenuation are identified. There is no indication of recent infarction. MIDLINE SHIFT OR HERNIATION: There is no mass effect. CEREBELLUM / BRAINSTEM: Atrophy of the cerebellar vermis is noted, greater than expected for age 36 years. Brainstem and cerebellum have an otherwise unremarkable appearance. MIDLINE STRUCTURES:No abnormalities of the pituitary gland or pineal region are identified. INTRACRANIAL VESSELS:No abnormalities are identified on this noncontrast head CT. ORBITS: visualized portions of the orbits have an unremarkable appearance. SOFT TISSUES of HEAD: No significant abnormality. CALVARIUM: Evaluation of bone windows reveals no abnormalities. PARANASAL SINUSES / MASTOID AIR CELLS: Visualized portions of the paranasal sinuses are free from inflammatory mucosal disease. Mastoid air cells are normally pneumatized. IMPRESSION: 1. No acute intracranial abnormality. 2. Atrophy of the cerebellar vermis greater than expected for age 36 years. Signer Name: Tonny Solorzano MD Signed: 01/26/2022 1:10 PM Workstation Name: [id number] Transcribed By: Dictated By: Tonny Solorzano MD Electronically Authenticated By: Tonny Solorzano MD Signed Date/Time: 01/26/22 1310 DD/ 1308 TD/TT: [facility] [address] [place] [address] XRay Report Signed Patient: ROBERT DOUGLASS MR#: [id number] 50 : 1985 Acct:[id number] Age/Sex: 36 / F ADM Date: 01/26/22 Loc: ED Attending Dr: Ordering Physician: KACY DIOP NP Date of Service: 01/26/22 Procedure(s): XR ribs UNI w PA chest 3+V LT Accession Number(s): [id number] cc: KACY DIOP NP Fluoro Time In Minutes: Chest with left RIBS 3 views HISTORY: Left rib pain status post fall. FINDINGS: Mild dextroconvex scoliosis is present at the thoracic spine. No bony injury identified. Heart size is normal. The lungs are clear. No pneumothorax, pleural fluid or infiltrate. Signer Name: Yonatan Silverman MD Signed: 01/26/2022 2:05 PM Workstation Name: [id number] Transcribed By: JEVON Dictated By: Yonatan Silverman MD Electronically Authenticated By: Yonatan Silverman MD Signed Date/Time: 01/26/221404 DD/ 03 TD/TT: - Medical Decision Making 36-year-old female reports to the ER after her drywall ceiling fell onto her yesterday afternoon with a positive LOC less than 5 minutes. On physical exam there is tenderness to the left lower leg with no open wounds. tenderness noted to her left shoulder with no deformities range of motion intact. Patient also reports headache due to head injury. CT head and CT cervical all negative with no acute process noted. Chest x-ray of rib areas negative with no acute process noted. Patient informed of her imaging results. Patient given oral medication prescriptions to go home with for pain control. Patient informed if symptoms are to get worse or any new onset of neurological problems to report back to the ER. Patient agrees with plan of care verbalized understanding. Vital Signs 01/26/22 12:41 Temperature 97.7 F Pulse Rate 94 H Respiratory 18 Rate Blood Pressure 129/94 [Left] O2 Sat by Pulse 99 Oximetry Critical care attestation.: If time is entered above; I have spent that time in minutes in the direct care of this critically ill patient, excluding procedure time. ED Disposition Clinical Impression: Whole body pain, Left leg pain Left shoulder pain Qualifiers: Chronicity: acute Qualified Code(s): M25.512 - Pain in left shoulder Disposition: 01 HOME / SELF CARE / HOMELESS Is pt being admited?: No Condition: Stable Instructions: Shoulder Pain, Shoulder Pain, [id number], Acute Pain, Adult Prescriptions: Ibuprofen [Motrin] 800 mg PO Q8HR PRN 6 Days #18 tablet PRN Reason: Pain , Severe (7-10) methOCARBAMOL [Robaxin TAB] 500 mg PO Q6H PRN 7 Days #14 tab PRN Reason: muscle spasm Acetaminophen/Codeine [Tylenol /Codeine # 3 tab] 1 tab PO Q6H PRN 2 Days #8 tab PRN Reason: Pain , Severe (7-10) Referrals: CARBUCCIA,MABLE, MD [Primary Care Provider] - 3-5 Days
== END 2022-01-26 18:15 | disposition home or self-care (01) ==
LOC: ED 11:55
DX: M25.512 Pain in left shoulder (principal); M79.605 Pain in left leg; F17.200 Nicotine dependence, unspecified, uncomplicated
CPT/HCPCS: 70450; 72125; 99284